=== PATIENT | male | born 1945 | race Caucasian/White ===

== ENCOUNTER 2019-05-31 01:06 | Emergency (ER) | payer MEDICARE, OTHER ==
[~2019-05-31] VITALS: Ht 167.6 cm; Wt 71.3 kg
[2019-05-31 01:09] VITALS: BP 166/81
[2019-05-31] MEDS ORDERED: HYDR-4353 PO (01:57)
== END 2019-05-31 02:03 | disposition home or self-care (01) ==
LOC: ER 01:08
DX: G89.29 Other chronic pain (principal); R51 Headache; I10 Essential (primary) hypertension; Z79.899 Other long term (current) drug therapy
CPT/HCPCS: 99283

== ENCOUNTER 2021-07-11 09:32 | Emergency (ER) | payer BC, OTHER ==
[~2021-07-11] VITALS: Ht 167.6 cm; Wt 71.8 kg
[2021-07-11 11:05] LABS: BASOPHILS % (AUTO) 0.5 % (0-1); EOSINOPHILS % (AUTO) 0 % (0-6); HEMOGLOBIN 12.7 g/dl (14.0-17.9); LYMPHOCYTES # (AUTO) 0.5 X10'3 (1.1-4.8); LYMPHOCYTES % (AUTO) 5.8 % (21-51); MEAN CORPUSCULAR HEMOGLOBIN 30.3 PG (27.0-31.0); MEAN CORPUSCULAR HGB CONC 34.3 g/dL (33.0-36.5); MEAN CORPUSCULAR VOLUME 88.3 FL (78-98); MEAN PLATELET VOLUME 7.1 FL (7.4-10.4); MONOCYTES # (AUTO) 0.2 X10'3 (0-0.9); MONOCYTES % (AUTO) 2.3 % (2-12); NEUTROPHILS # (AUTO) 7.5 X10'3 (1.8-7.7); NEUTROPHILS % (AUTO) 91.4 % (42-75); PLATELET COUNT 185 X10'3 (140-440); RED BLOOD COUNT 4.19 X10'6 (4.70-6.10); RED CELL DISTRIBUTION WIDTH 12.8 % (11.5-14.5); WHITE BLOOD COUNT 8.2 X10'3 (4.5-11.0)
[2021-07-11 11:16] LABS: ALANINE AMINOTRANSFERASE 46 U/L (12-78); ALBUMIN 3.2 G/DL (3.4-5.0); ALBUMIN/GLOBULIN RATIO 0.8 (1.1-1.5); ALKALINE PHOSPHATASE 123 IU/L (46-116); ANION GAP 9 (8-16); ASPARTATE AMINO TRANSFERASE 31 U/L (10-37); BILIRUBIN,TOTAL 0.4 MG/DL (0.1-1.0); BLOOD UREA NITROGEN 13 MG/DL (7-18); BUN/CREATININE RATIO 9.9 (5.4-32.0); C-REACTIVE PROTEIN 8.93 MG/DL (0.0-0.5); CHLORIDE 99 MMOL/L (99-107); CREATININE 1.31 MG/DL (0.60-1.10); GLUCOSE 151 MG/DL (70-104); POTASSIUM 4.6 MMOL/L (3.5-5.1); SODIUM 134 MMOL/L (135-145); TOTAL CARBON DIOXIDE 25.8 MMOL/L (24-32); TOTAL PROTEIN 7.2 G/DL (6.4-8.2); eGFR 53 ML/MIN
[2021-07-11 12:36] LABS: TOTAL CELLS COUNTED 100
[2021-07-11 12:37] LABS: PLATELET ESTIMATE NORMAL
[2021-07-11] MEDS: ondansetron/PF 4mg/2ml inj IV ONE (14:34)
[2021-07-11] MEDS: BAMLANIVIMAB 700mg/20ml inj. 700 MG, ETESEVIMAB 700mg/20mL inj. 1,400 MG in normal sali... IV ONE (14:34)
[2021-07-11] MEDS: acetaminophen 325mg tablet PO ONE (15:25)
--- NOTE | 2021-07-11 15:30 | NUR ---
PT O2 DROPPED TO 91% FROM 94%.
--- NOTE | 2021-07-11 16:03 | NUR ---
94% ON 2L NC
[2021-07-11] MEDS ORDERED: GUAI118S13 PO (16:36)
[2021-07-11] MEDS ORDERED: ONDA4TAB12 PO (16:36)
[2021-07-11] MEDS ORDERED: BENZ-16 PO (16:36)
[2021-07-11 18:08] VITALS: BP 126/60
[2021-07-12] MEDS ORDERED: OXYGEN NASALCANN (13:39)
== END 2021-07-11 18:19 | disposition home or self-care (01) ==
LOC: ER 09:33
DX: U07.1 COVID-19 (principal); J12.82 Pneumonia due to coronavirus disease 2019; R07.89 Other chest pain; R05.9 Cough, unspecified; R06.02 Shortness of breath; R11.0 Nausea; I10 Essential (primary) hypertension; Z79.899 Other long term (current) drug therapy
CPT/HCPCS: 36415; 71045; 80053; 84145; 85007; 85025; 85379; 86140; 96374; 99284; J2405; M0245; Q0245; Q0239